=== PATIENT | male | born 1985 | race Caucasian/White ===

== ENCOUNTER 2020-01-07 11:44 | Emergency (ER) | payer SELFPAY ==
[~2020-01-07] VITALS: Ht 157.5 cm; Wt 83.5 kg
--- NOTE | 2020-01-07 11:50 | NUR ---
PT AMBULATED TO ER BED 01
[2020-01-07 11:52] VITALS: BP 146/89
--- NOTE | 2020-01-07 12:00 | NUR ---
34 YO MALE CO FEELING ILL SINCE YESTERDAY. PT STATED THAT AND DAUGHTER TESTED POSITIVE FOR COVID. PT IS STABLE AND AFEBRILE AT THIS TIME. NO SOB AND NO COUGHING. NO PMH.
--- NOTE | 2020-01-07 13:17 | NUR ---
COVID MOUTH SWAB DONE-SENT TO LAB. PT RENE WELL
[2020-01-07 13:20] VITALS: BP 139/78
--- NOTE | 2020-01-07 13:21 | NUR ---
Patient discharged with v/s stable. Written and verbal after care instructions given and explained. Patient alert, oriented and verbalized understanding of instructions. Ambulatory with steady gait. All questions addressed prior to discharge. ID band removed. Patient advised to follow up with PMD. Rx of PROMETHAZINE given. Patient educated on indication of medication including possible reaction and side effects. Opportunity to ask questions provided and answered.
== END 2020-01-07 13:21 | disposition home or self-care (01) ==
LOC: MED 11:44 → EEVIPCON 11:44 → MED 13:21
DX: R05 Cough (principal); Z20.828 Contact with and (suspected) exposure to other viral communicable diseases
CPT/HCPCS: 99283; C9803; U0003; 36415

== ENCOUNTER 2020-01-12 18:41 | Emergency (ER) | payer SELFPAY ==
[~2020-01-12] VITALS: Ht 162.6 cm; Wt 83.5 kg
[2020-01-12 18:48] VITALS: BP_SYST 120; BP_SYST 124; BP_DIAS 72; BP_DIAS 77
[2020-01-12 19:08] VITALS: BP 120/72
== END 2020-01-12 19:08 | disposition home or self-care (01) ==
LOC: MED 18:41 → EEVIPCON 18:41 → MED 19:08
DX: U07.1 COVID-19 (principal); R50.9 Fever, unspecified
CPT/HCPCS: 99283